=== PATIENT | male | born 1985 | race American Indian/Alaskan Native ===

== ENCOUNTER 2016-07-17 13:15 | Emergency (ER) | payer OTHER ==
[2016-07-17 13:24] VITALS: TEMP 98.1; O2SAT 99
--- NOTE | 2016-07-17 14:27 | ED PDOC ---
HPI: Abdomen Chief Complaint (Nursing): Abdominal Pain Chief Complaint (Provider): Abdominal Pain localized to Rt. Inguinal area History Per: Patient History/Exam Limitations: no limitations Onset/Duration Of Symptoms: Intermittent Episodes Outside of [place] travel?: No Current Symptoms Are (Timing): Still Present Context: Other (lifting more than 20 lbs) Severity: Moderate Pain Scale Rating Of: 4 Location Of Pain/Discomfort: RLQ Quality Of Discomfort: Dull, Aching Associated Symptoms: denies: Fever, Chills Exacerbating Factors: Other (lifting more than 20 lbs) Last Bowel Movement: Today Additional Complaint(s): Pt. with complaint of abdominal pain that is intermittent starting 1 month ago. Pt. reports pain usually lasts for 5 minutes and resolved spontaneously and is usually triggered by lifting more than 20lbs. On ROS, Pt. denies any dysuria, hemautira, penile discharge, flank pain, nausea, vomiting, diarrhea, or joint pain. Pt. also states has not noticed any bulging, change in urine caliber, or incontinence. Past Medical History Vital Signs: Last Vital Signs Temp 98.1 F 07/17/16 13:23 Pulse 70 07/17/16 13:23 Resp 19 07/17/16 13:23 BP 127/65 07/17/16 13:23 Pulse Ox 99 07/17/16 14:38 - Medical History PMH: No Chronic Diseases - Surgical History Surgical History: No Surg Hx - Family History Family History: States: Unknown Family Hx - Social History Current smoker - smoking cessation education provided: No Alcohol: Occasional Drugs: Denies - Allergies Allergies/Adverse Reactions: Allergies Allergy/AdvReac Type Severity Reaction Status Date / Time No Known Allergies Allergy Verified 07/17/16 13:24 Review of Systems Gastrointestinal: Positive for: Abdominal Pain (See HPI ) Physical Exam - Reviewed Vital Signs Reviewed: Yes - Physical Exam Appears: Positive for: Non-toxic, No Acute Distress Eye Exam: Positive for: Normal appearance. Negative for: Scleral icterus Neck: Positive for: Painless ROM Cardiovascular/Chest: Positive for: Regular Rate, Rhythm Respiratory: Positive for: Normal Breath Sounds. Negative for: Wheezing, Respiratory Distress Gastrointestinal/Abdominal: Positive for: Soft. Negative for: Tenderness Male Genital Exam: Positive for: normal genitalia, inguinal tenderness (+Mild Rt. sided Inguinal tenderness). Negative for: no hernia, erythema, lesions, scrotum tenderness (R), scrotum tenderness (L), testicular tenderness (R), testicular tenderness (L), urethral discharge Back: Negative for: L CVA Tenderness, R CVA Tenderness Extremity: Negative for: Tenderness, Pedal Edema Neurologic/Psych: Positive for: Alert, Oriented (x 3) - ECG O2 Sat by Pulse Oximetry: 99 - Progress ED Course And Treament: 1- Urine Dip 2- U/R Rt. Sided Limited Re-evaluation Time: 18:16 Condition: Improved Medical Decision Making Medical Decision Makin y.o. male with acute pain in the RT inguinal area with subsequent U/S confirming the presence of bilateral inguinal hernia. On physical exam no significant exam findings. Pt. on re-evaluation reports pain has completely resolved and is seen lying in bed smiling comfortably. Pt. progress discussed with surgery resident Dr. Sutton no need for surgical intervention at this time. Pt. to follow up as an outpatient with Dr. Kate and [facility] for primary care. Disposition - Clinical Impression Clinical Impression: Bilateral inguinal hernia - Patient ED Disposition Is Patient to be Admitted: No Discussed With DrJose Manuel: Lissette Ovalle - Disposition Referrals: [facility] [Outside] [facility] [Outside] Addison Kate MD [Staff Provider] - Laci Connolly DO [Emergency Midlevel Provider] - Disposition: Routine/Home Disposition Time: 18:25 Condition: GOOD Additional Instructions: E.R. precautions given. Pt. to return if pain returns or worsens.
--- NOTE | 2016-07-17 17:53 | US ---
PROCEDURE: Extremity nonvascular ultrasound HISTORY: Rt. Inguinal Pain COMPARISON: TECHNIQUE: Standard protocol for this study/examination. FINDINGS: Peristalsing loops of bowel identified in both right and left inguinal regions. As can best be determined no additional inguinal abnormalities. No adjacent fluid or other pathologic process. IMPRESSION: Bilateral inguinal hernias containing peristalsing loops of bowel. No additional abnormalities, findings identified.
[2016-07-17 18:45] VITALS: BP 114/60; PULSE 66; RESP 16
== END 2016-07-17 18:45 | disposition home or self-care (01) ==
LOC: H.ER 13:15
DX: K40.20 Bilateral inguinal hernia, without obstruction or gangrene, not specified as recurrent (principal)